=== PATIENT | female | born 1985 | race Caucasian/White ===

== ENCOUNTER 2023-02-25 12:46 | Day surgery (SDC) | payer OTHER ==
[~2023-02-25 12:46] MED LIST: CYANOCOBALAMIN (VITAMIN B-12) 1000 MCG/1 ML VIAL IM ONE; IRON SUCROSE COMPLEX IVPB ONE; IRON SUCROSE IVPB ONE; SODIUM CHLORIDE IVPB ONE
[2023-02-25 15:32] VITALS: RESP 18; TEMP 98.6
[2023-02-25 15:34] VITALS: BP 117/67; PULSE 68
== END 2023-02-25 14:15 | disposition home or self-care (01) ==
LOC: JONCNONCHE 12:46
PROVIDERS: ATTEND Internal Medicine Hematology & Oncology
PROC: 3E033GC Introduction of Other Therapeutic Substance into Peripheral Vein, Percutaneous Approach (ICD-10-PCS; principal; 2023-02-25)
DX: D50.9 Iron deficiency anemia, unspecified (principal)
CPT/HCPCS: 96365; J1756

== ENCOUNTER 2023-03-04 14:00 | Day surgery (SDC) | payer OTHER ==
[~2023-03-04 14:00] MED LIST changes: -IRON SUCROSE IVPB ONE
[2023-03-04 17:55] VITALS: BP 114/64; PULSE 76; RESP 18; TEMP 97.8
== END 2023-03-04 14:35 | disposition home or self-care (01) ==
LOC: JONCNONCHE 14:00 → J7W 14:35
PROVIDERS: ATTEND Internal Medicine Hematology & Oncology
PROC: 3E033GC Introduction of Other Therapeutic Substance into Peripheral Vein, Percutaneous Approach (ICD-10-PCS; principal; 2023-03-04)
DX: D50.9 Iron deficiency anemia, unspecified (principal)
CPT/HCPCS: 96365

== ENCOUNTER 2023-03-11 13:30 | Day surgery (SDC) | payer OTHER ==
[~2023-03-11 13:30] MED LIST changes: -IRON SUCROSE COMPLEX IVPB ONE; +IRON SUCROSE INJECTION 300 MG in SODIUM CHLORIDE 250 ML IVPB ONE; -SODIUM CHLORIDE IVPB ONE
[2023-03-11 16:12] VITALS: BP 110/60; PULSE 60; RESP 18; TEMP 98
== END 2023-03-11 15:10 | disposition home or self-care (01) ==
LOC: JONCNONCHE 13:30 → J7W 13:30 → JONCNONCHE 15:10
PROVIDERS: ATTEND Internal Medicine Hematology & Oncology
PROC: 3E033GC Introduction of Other Therapeutic Substance into Peripheral Vein, Percutaneous Approach (ICD-10-PCS; principal; 2023-03-11)
DX: E61.1 Iron deficiency (principal)
CPT/HCPCS: 96365; J1756

== ENCOUNTER 2023-03-18 12:53 | Day surgery (SDC) | payer OTHER ==
[2023-03-18] MEDS ORDERED: IRON SUCROSE INJECTION 300 MG in SODIUM CHLORIDE 250 ML IVPB ONE (13:30)
[2023-03-18 15:16] VITALS: RESP 18; TEMP 98.1
[2023-03-18 15:22] VITALS: BP 102/68; PULSE 89
== END 2023-03-18 14:25 | disposition home or self-care (01) ==
LOC: JONCNONCHE 12:53 → J7W 12:53 → JONCNONCHE 14:25
PROVIDERS: ATTEND Internal Medicine Hematology & Oncology
PROC: 3E033GC Introduction of Other Therapeutic Substance into Peripheral Vein, Percutaneous Approach (ICD-10-PCS; principal; 2023-03-18)
DX: D50.9 Iron deficiency anemia, unspecified (principal)
CPT/HCPCS: 96365; J1756

== ENCOUNTER 2023-12-09 14:54 | Emergency (ER) | payer OTHER ==
[2023-12-09 15:12] VITALS: BP 116/79; PULSE 73; RESP 17; TEMP 98.4; BMI 29.6
[2023-12-09] MEDS ORDERED: KETOROLAC TROMETHAMINE 30 MG/1 ML VIAL ONE (16:31)
[2023-12-09] MEDS ORDERED: FAMOTIDINE 20 MG/50 ML IVPB 20 MG/50 ML MG IVPB ONE (16:31)
[2023-12-09] MEDS: SODIUM CHLORIDE 0.9% 500 ML INFUS.BAG IV ONE (16:50)
[2023-12-09] MEDS: KETOROLAC TROMETHAMINE 30 MG/1 ML VIAL IVPUSH ONE (16:50)
[2023-12-09] MEDS: FAMOTIDINE 20 MG/50 ML IVPB 20 MG/50 ML MG IVPB ONE (16:50)
[2023-12-09 17:03] LABS: BASO % 0.3 % (0-2.0); EOS % 0.6 % (0-4.5); HEMATOCRIT 42.7 % (32.4-45.2); HEMOGLOBIN 14.1 GM/dL (10.7-15.3); LYMPH % 28.8 % (8-40); MCH 30.1 pg (25.7-33.7); MCHC 33.1 g/dl (32.0-36.0); MEAN CELL VOLUME 90.8 fl (80-96); MEAN PLT VOLUME 9.7 fl (7.5-11.1); MONO % 5.4 % (3.8-10.2); NEUT % 64.9 % (42.8-82.8); PLATELET COUNT 242 10^3/uL (134-434); RDW 13.4 % (11.6-15.6); WHITE BLOOD COUNT 5.7 K/mm3 (4.0-10.0)
[2023-12-09 17:05] LABS: PH,URINE 5.5 (5.0-8.0); URINE APPEARANCE CLEAR; URINE BILIRUBIN NEGATIVE (NEGATIVE); URINE COLOR YELLOW; URINE GLUCOSE (UA) NEGATIVE (NEGATIVE); URINE KETONE NEGATIVE (NEGATIVE); URINE LEUK ESTERASE NEGATIVE (NEGATIVE); URINE NITRITE NEGATIVE (NEGATIVE); URINE PROTEIN NEGATIVE (NEGATIVE); URINE UROBILINOGEN 0.2 mg/dL (0.2-1.0)
[2023-12-09 17:23] LABS: POTASSIUM 3.8 mmol/L (3.5-5.1)
[2023-12-09 17:27] LABS: BLOOD UREA NITROGEN 14.7 mg/dL (7-18); CALCIUM 8.8 mg/dL (8.5-10.1)
[2023-12-09 17:31] LABS: CREATININE 0.8 mg/dL (0.55-1.3)
[2023-12-09 17:32] LABS: BILIRUBIN,TOTAL 0.4 mg/dL (0.2-1); TOT PROT 7.5 g/dl (6.4-8.2)
== END 2023-12-09 21:17 | disposition home or self-care (01) ==
LOC: JER 14:54
PROC: 3E033GC Introduction of Other Therapeutic Substance into Peripheral Vein, Percutaneous Approach (ICD-10-PCS; principal; 2023-12-09)
PROC: 3E0333Z Introduction of Anti-inflammatory into Peripheral Vein, Percutaneous Approach (ICD-10-PCS; 2023-12-09)
DX: R10.11 Right upper quadrant pain (principal)
CPT/HCPCS: 36415; 74177-TC; 76830-TC; 80053; 81003; 83690; 84703; 85025; 87086; 99285-25; Q9967

== ENCOUNTER 2024-07-12 09:06 | Day surgery (SDC) | payer OTHER ==
[2024-07-12] MEDS: IRON SUCROSE INJECTION 200 MG in SODIUM CHLORIDE 100 ML IVPB ONE (08:46)
[2024-07-12 09:53] VITALS: TEMP 97.6
[2024-07-12 09:58] VITALS: BP 112/70; PULSE 70; RESP 16
== END 2024-07-12 09:45 | disposition home or self-care (01) ==
LOC: JONCNONCHE 09:06
PROVIDERS: ATTEND Internal Medicine Hematology & Oncology
PROC: 3E023GC Introduction of Other Therapeutic Substance into Muscle, Percutaneous Approach (ICD-10-PCS; principal; 2024-07-12)
DX: E61.1 Iron deficiency (principal)
CPT/HCPCS: 96365; J1756

== ENCOUNTER 2024-07-19 08:55 | Day surgery (SDC) | payer OTHER ==
[2024-07-19] MEDS: IRON SUCROSE INJECTION 200 MG in SODIUM CHLORIDE 100 ML IVPB ONE (09:13)
[2024-07-19 15:20] VITALS: RESP 20; TEMP 97.3
[2024-07-19 15:25] VITALS: BP 100/59; PULSE 65
== END 2024-07-19 10:20 | disposition home or self-care (01) ==
LOC: JONCCHEMO 08:55 → J7W 08:58 → JONCCHEMO 10:20
PROVIDERS: ATTEND Internal Medicine Hematology & Oncology
PROC: 3E033GC Introduction of Other Therapeutic Substance into Peripheral Vein, Percutaneous Approach (ICD-10-PCS; principal; 2024-07-19)
DX: E61.1 Iron deficiency (principal)
CPT/HCPCS: 96365; J1756